=== PATIENT | male | born 2000 | race African-American/Black ===

== ENCOUNTER 2020-06-02 16:21 | Emergency (ER) | payer BC ==
[2020-06-02 16:30] VITALS: BP 133/58; PULSE 79; TEMP 98.7; BMI 30.3
--- OUTSIDE RECORDS SUMMARY | 2020-06-02 16:40 | XMS ---
:2000 Author Organization [facility] Support Name Relationship Address Phone UE Unavailable Unavailable Unavailable CHRISTIANNE HAJI [address] [place] [address] CIELO Unavailable Unavailable Unavailable OLEGARIO RIVERA [address] [phone] [place] [address] OLEGARIO RIVERA [address] [place] [address] Re-disclosure Warning The records that you are about to access may contain information from federally- assisted alcohol or drug abuse programs. If such information is present, then the following federally mandated warning applies: This information has been disclosed to you from records protected by federal confidentiality rules (42 CFR part 2). The federal rules prohibit you from making any further disclosure of this information unless further disclosure is expressly permitted by the written consent of the person to whom it pertains or as otherwise permitted by 42 CFR part 2. A general authorization for the release of medical or other information is NOT sufficient for this purpose. The Federal rules restrict any use of the information to criminally investigate or prosecute any alcohol or drug abuse patient.The records that you are about to access may contain highly sensitive health information, the redisclosure of which is protected by Article 27-F of the [facility] Public Health law. If you continue you may haveaccess to information: Regarding HIV / AIDS; Provided by facilities licensed or operated by the [facility] Office of Mental Health; or Provided by the [facility] Office for People With Developmental Disabilities. If such information is present, then the following [facility] mandated warning applies: This information has been disclosed to you from confidential records which are protected by state law. State law prohibits you from making any further disclosure of this information without the specific written consent of the person to whom it pertains, or as otherwise permitted by law. Any unauthorized further disclosure in violation of state law may result in a fine or skilled nursing sentence or both. A general authorization for the release of medical or other information is NOT sufficient authorization for further disclosure. Insurance Providers Payer name Policy type Policy ID Covered Covered democrat's Policy P stewart / Coverage democrat ID relationship to Lopez Inf ormation type lopez PPO [id number] SELF PAY INSURANCE OUT OF [id number] ID [id number] [id number] ID [id number]
--- NOTE | 2020-06-02 17:41 | PDOC ---
History of Present Illness - General History Source: Patient Exam Limitations: Clinical Condition - History of Present Illness Initial Comments: 06/02/20 17:37 Patient with past medical history of anxiety present with complaint of 4 months history of intermittent midsternal chest pain intermittent shortness of breath. Patient reported feeling the symptoms last week while playing football and he went to urgent care with EKG and everything that was normal. Patient reported again feeling the symptoms today and went to an urgent care for evaluation and was advised to come to the ED as he had abnormal EKG. Patient reported he was told by his mother symptoms likely from anxiety but wanted to make sure everything is fine, so he went to an urgent care today. Denies shortness of breath, palpitation, numbness or tingling sensation, nausea, vomiting, headache, blurry vision or change in vision. Patient has not taken anything for symptoms. Denies any other symptoms Is this a multiple visit Asthma Patient?: No Timing/Duration: other (4 months) Severity: mild Associated Symptoms: reports: chest pain (intermittent), shortness of breath (intermittent). denies: cough, diaphoresis, fever/chills, headaches, loss of appetite, malaise, nausea/vomiting, rash, seizure, syncope, weakness Aspirin Received prior to arrival: Yes: no aspirin today Beta Deysi Given by EMS(Core Measure): No Beta Deysi Taken at Home(Core Measure): No Beta Deysi Not Indicated at this Time(Core Measure): No <VamsiFreedom Fine - Last Filed: 06/02/20 19:55> <Flaquita Maddox - Last Filed: 06/02/20 20:11> - General Chief Complaint: Chest Pain Stated Complaint: CHEST PAIN Time Seen by Provider: 06/02/20 17:22 Past History - Medical History COPD: No - Psycho-Social/Smoking History Smoking History: Current every day smoker Have you smoked in the past 12 months: Yes Number of Cigarettes Smoked Daily: 0 Information on smoking cessation initiated: Yes - Substance Abuse Hx (Audit-C & DAST Scrn) How often the patient has a drink containing alcohol: Never Score: In Men: 4 or > Positive; In Women: 3 or > Positive: 0 Screen Result (Pos requires Nsg. Audit-10AR): Negative In the last yr the pt used illegal drug/Rx for NonMed reason: No Score: Yes response is considered Positive: 0 Screen Result (Positive result requires Nsg. DAST-10): Negative <Freedom Agustin - Last Filed: 06/02/20 19:55> <Flaquita Maddox Varshashanique - Last Filed: 06/02/20 20:11> - Medical History Allergies/Adverse Reactions: Allergies Allergy/AdvReac Type Severity Reaction Status Date / Time No Known Allergies Allergy Verified 06/02/20 16:26 Home Medications: Ambulatory Orders NK [No Known Home Medication] 06/02/20 Review of Systems - Review of Systems Able to Perform ROS?: Yes Is the patient limited Greek proficient: No Constitutional: No: Fever, Malaise HEENTM: No: Symptoms Reported, See HPI, Eye Pain, Blurred Vision, Tearing, Recent change in vision, Double Vision, Cataracts, Ear Pain, Ocular Prothesis, Ear Discharge, Nose Pain, Nose Congestion, Tinnitus, Nose Bleeding, Hearing Loss, Throat Pain, Throat Swelling, Mouth Pain, Dental Problems, Difficulty Swallowing, Mouth Swelling, Other Respiratory: Yes: Symptoms reported, See HPI, Shortness of Breath (intermittent). No: Cough, Orthopnea, SOB with Exertion, SOB at Rest, Stridor, Wheezing, Productive cough, Hemoptysis, Other Cardiac (ROS): Yes: Symptoms Reported, See HPI, Chest Pain (intermittent mid- sternal CP). No: Edema, Irregular Heart Rate, Lightheadedness, Palpitations, Syncope, Chest Tightness, Other ABD/GI: No: Symptoms Reported, Nausea, Vomiting, Abdominal cramping Musculoskeletal: No: Symptoms Reported, Other Integumentary: No: Symptoms Reported, Rash Neurological: No: Symptoms reported, Headache, Paresthesia, Weakness, Dizziness All Other Systems: Reviewed and Negative <Freedom Agustin - Last Filed: 06/02/20 19:55> *Physical Exam - Vital Signs Last Vital Signs Temp Pulse Resp BP Pulse Ox 98.7 F 79 18 133/58 L 100 06/02/20 16:26 06/02/20 16:26 06/02/20 16:26 06/02/20 16:26 06/02/20 16:26 - Physical Exam 06/02/20 17:41 GENERAL: Well developed, well nourished. Awake and alert. No acute distress. HEENT: Normocephalic, atraumatic. PERRLA, EOMI. No conjunctival pallor. Sclera are non-icteric. Moist mucous membranes. Oropharynx is clear. NECK: Supple. Full ROM. CARDIOVASCULAR: Mild reproducible lower midsternal chest wall tenderness over xiphoid process. Regular rate and rhythm. No murmurs, rubs, or gallops. Distal pulses are 2+ and symmetric. PULMONARY: No evidence of respiratory distress. Lungs clear to auscultation bilaterally. No wheezing, rales or rhonchi. ABDOMINAL: Soft. Non-tender. Non-distended. No rebound or guarding. No organomegaly. Normoactive bowel sounds. MUSCULOSKELETAL Normal range of motion at all joints. EXTREMITIES: No cyanosis. No clubbing. No edema. No calf tenderness. SKIN: Warm and dry. Normal capillary refill. No rashes. No jaundice. NEUROLOGICAL: Alert, awake, appropriate. Gait is normal without ataxia. PSYCHIATRIC: Cooperative. Good eye contact. Appropriate mood General Appearance: Yes: Nourished, Appropriately Dressed. No: Apparent Distress <Freedom Agustin - Last Filed: 06/02/20 19:55> - Vital Signs Last Vital Signs Temp Pulse Resp BP Pulse Ox 98.7 F 79 18 133/58 L 100 06/02/20 16:26 06/02/20 16:26 06/02/20 16:26 06/02/20 16:26 06/02/20 16:26 <Flaquita Maddox - Last Filed: 06/02/20 20:11> Heart Score/ECG Review - History History: Slightly suspicious - Electrocardiogram EKG: Normal - Age Age: </= 43 - Risk Factors Risk Factors Heart Score: No Hx Hypercholesterolemia, No Hx Hypertension, No Hx Diabetes, No Smoking History, No Positive family hx of cardiac disease, No Hx Obesity Based on the list above the patient has:: No risk factors known - Troponin Troponin: </= normal limit - Score Heart Score - Total: 0 - ECG Intrepretation Rhythm: Regular Rhythm <Freedom Agustin - Last Filed: 06/02/20 19:55> ED Treatment Course - LABORATORY CBC & Chemistry Diagram: 06/02/20 17:40 06/02/20 17:40 - RADIOLOGY Radiology Studies Ordered: Category Date Time Status CHEST PA & LAT [RAD] Stat Radiology 06/02/20 17:31 Ordered <Freedom Agustin - Last Filed: 06/02/20 19:55> - LABORATORY CBC & Chemistry Diagram: 06/02/20 17:40 06/02/20 17:40 <Flaquita Maddox - Last Filed: 06/02/20 20:11> Medical Decision Making - Medical Decision Making 06/02/20 17:39 Patient with past medical history of anxiety present with complaint of 4 months history of intermittent midsternal chest pain intermittent shortness of breath. Patient reported feeling the symptoms last week while playing football and he went to urgent care with EKG and everything that was normal. Patient reported again feeling the symptoms today and went to an urgent care for evaluation and was advised to come to the ED as he had abnormal EKG. Patient reported he was told by his mother symptoms likely from anxiety but wanted to make sure everything is fine, so he went to an urgent care today. Denies shortness of breath, palpitation, numbness or tingling sensation, nausea, vomiting, headache, blurry vision or change in vision. Patient has not taken anything for symptoms. Denies any other symptoms Clinical exam unremarkable except mild midsternal chest tenderness over xiphoid process of mid sternum with normal cardio and lung exam. Patient in no acute distress. Normal abdominal exam. Patient with normal vital signs. Review of patient EKG brought in from urgent care shows normal sinus rhythm with no clear abnormality. Patient symptoms likely costochondritis with anxiety versus less likely cardiogenic symptoms. Repeat EKG ordered. Chest x-ray, CBC and cardiac profile lab ordered. Treat based on imaging and lab results 06/02/20 19:36 CBC and chemistry lab unremarkable. Troponin is normal. Repeat EKG shows normal sinus rhythm with no acute abnormality. Chest x-ray shows no acute abnormality. Patient asymptomatic now. Patient symptoms likely costochondritis and stable for discharge to take Tylenol as needed for pain with cardiology follow-up <Freedom Agustin - Last Filed: 06/02/20 19:55> - Medical Decision Making The patient was seen and evaluated in conjunction with midlevel provider under my direct supervision, ancillary studies were reviewed. I agree with the plan as outlined withJYOTI Agustin. HPI, workup/dispo as outlined. VS reviewed, wnl. Vital Signs Temp Pulse Resp BP Pulse Ox 98.7 F 79 18 133/58 L 100 06/02/20 16:26 06/02/20 16:26 06/02/20 16:26 06/02/20 16:26 06/02/20 16:26 EKG normal sinus rhythm 69 bpm, no interval abnormalities, narrow QRS, ST and T wave segments and morphology normal. labs and lytes wnl, reassuring neg trop, unlikely cardiac cards f/u return precautions DC stable condition 06/02/20 18:05 06/02/20 20:11 <Flaquita Maddox - Last Filed: 06/02/20 20:11> Discharge - Discharge Information Problems reviewed: Yes - Admission No <VamsiFreedom Babatunde - Last Filed: 06/02/20 19:55> <Flaquita Maddox - Last Filed: 06/02/20 20:11> - Discharge Information Clinical Impression/Diagnosis: Costochondral chest pain Condition: Improved Disposition: HOME - Follow up/Referral Referrals: Wolfgang Farr MD [Staff Physician] - Gen Patino MD [Staff Physician] - - Patient Discharge Instructions Patient Printed Discharge Instructions: DI for Costochondritis, DI for Chest Pain Additional Instructions: Your blood work is normal. Your repeat EKG is normal and shows no abnormality. Your heart enzymes is normal and shows no cardiac abnormality. Your symptoms likely caused by muscle pain. Take Tylenol Motrin as needed for pain. Follow- up referred digital marketer if symptoms persist
[2020-06-02 18:32] LABS: BASO % 0.6 % (0-2.0); EOS % 1.1 % (0-4.5); HEMATOCRIT 46.5 % (35.4-49); HEMOGLOBIN 15.7 GM/dL (11.7-16.9); LYMPH % 45.7 % (8-40); MCH 30.6 pg (25.7-33.7); MCHC 33.8 g/dl (32.0-35.9); MEAN CELL VOLUME 90.5 fl (80-96); NEUT % 43.6 % (42.8-82.8); PLATELET COUNT 194 K/MM3 (134-434); RBC 5.14 M/mm3 (4.00-5.60); RDW 12.6 % (11.9-15.9); WHITE BLOOD COUNT 4.5 K/mm3 (4.0-10.0)
[2020-06-02 19:01] LABS: CHLORIDE 103 mmol/L (98-107); SODIUM 139 mmol/L (136-145)
[2020-06-02 19:03] LABS: ANION GAP 5 MMOL/L (8-16); CALCIUM 9.4 mg/dL (8.5-10.1); CO2 31 mmol/L (21-32)
[2020-06-02 19:04] LABS: ALBUMIN 4.4 g/dl (3.4-5.0); BLOOD UREA NITROGEN 14.4 mg/dL (7-18); GLUCOSE,RANDOM 97 mg/dL (74-106)
[2020-06-02 19:07] LABS: CREATININE 0.9 mg/dL (0.55-1.3); SGOT/AST 16 U/L (15-37); SGPT/ALT 26 U/L (13-61)
[2020-06-02 19:08] LABS: BILIRUBIN,TOTAL 0.4 mg/dL (0.2-1); TOT PROT 7.6 g/dl (6.4-8.2)
[2020-06-02 19:09] LABS: ALK PHOS 67 U/L (45-117)
--- NOTE | 2020-06-03 18:39 | EKG ---
Test Reason : Blood Pressure : / mmHG Vent. Rate : 069 BPM Atrial Rate : 069 BPM P-R Int : 168 ms QRS Dur : 088 ms QT Int : 352 ms P-R-T Axes : 028 083 057 degrees QTc Int : 377 ms NORMAL SINUS RHYTHM NORMAL ECG NO PREVIOUS ECGS AVAILABLE Confirmed by MD KYLIE, CHERELLE ([id number]) on 06/03/2020 6:39:36 PM Referred By: Confirmed By:CHERELLE ESPINAL MD
== END 2020-06-02 19:53 | disposition home or self-care (01) ==
LOC: JER 16:21
DX: R07.1 Chest pain on breathing (principal)
CPT/HCPCS: 36415; 71046-TC-FY; 80053; 82550; 82553; 83735; 84484; 85025; 93005; 93010; 99285-25

== ENCOUNTER 2022-09-17 05:21 | Emergency (ER) | payer BC ==
[2022-09-17 05:38] VITALS: BMI 27.4
[2022-09-17] MEDS ORDERED: ACETAMINOPHEN 1000 MG/100 ML BAG IVPB ONE (08:17)
[2022-09-17] MEDS ORDERED: SODIUM CHLORIDE 0.9% 500 ML INFUS.BAG IV ONE (08:17)
[2022-09-17] MEDS ORDERED: METOCLOPRAMIDE HCL INJECTION 10 MG/2 ML VIAL IVPUSH ONE (08:17)
[2022-09-17] MEDS ORDERED: ACETAMINOPHEN INJECTION 100 ML IVPB ONE (09:28)
[2022-09-17] MEDS ORDERED: METOCLOPRAMIDE HCL INJECTION 10 MG/2 ML VIAL ONE (09:29)
[2022-09-17 11:11] VITALS: BP 130/54; PULSE 63; RESP 18; TEMP 98.1
== END 2022-09-17 12:36 | disposition home or self-care (01) ==
LOC: JER 05:21
PROC: 3E0333Z Introduction of Anti-inflammatory into Peripheral Vein, Percutaneous Approach (ICD-10-PCS; principal; 2022-09-17)
PROC: 3E033GC Introduction of Other Therapeutic Substance into Peripheral Vein, Percutaneous Approach (ICD-10-PCS; 2022-09-17)
DX: R19.7 Diarrhea, unspecified (principal); R51.9 Headache, unspecified
CPT/HCPCS: 71046-TC-FY; 93005; 93010; 99284-25